=== PATIENT | female | born 1970 | race Caucasian/White ===

== ENCOUNTER 2020-03-07 05:18 | Emergency (ER) | payer MEDICAID, SELFPAY ==
[2020-03-07 05:20] VITALS: BP 152/100; PULSE 78; RESP 16; TEMP 36.4; O2SAT 99; BMI 31.8
--- NOTE | 2020-03-07 05:43 | ED.VISSUMM ---
- ER Visit Summary Date of Service: 03/07/20 Chief Complaint: Left thumb pain and decreased range of motion History of Present Illness: The patient is a 49 F history of prior strokes, uterine cancer and multiple surgeries. 7 weeks ago patient had surgery done by Dr. Familia Bah of the [facility]. She states she had previously been treated for several months at the [facility] orthopedic clinic. States Dr. Bah in a hand specialist with the [facility] 7 weeks ago did surgeon her left thumb due to what she states was a tendon injury. She states it was doing well. She was on vacation took her brace off and injured her left thumb in the shower. Coming home she stopped the emergency department in [place] who told her that her thumb was infected and treated with IV antibiotics. She states they started her on oral antibiotics but said she was allergic to them and never took them. She has an appointment to see Dr. Bah around 9:00 this morning. She denies any fever or chills. Physical Examination: Well-appearing middle-aged female no acute distress vital signs are stable afebrile. H EENT exam unremarkable. Lungs clear to auscultation bilaterally. Heart regular rhythm no murmur. Abdomen soft nontender. Extremities moves all 4. Specifically her left forearm and wrist are nontender nonswollen. She had normal radial pulse. Her left thumb is bent 90 degrees at her metacarpal phalangeal joint. She is unable to extend the thumb. There is mild swelling at the MCP joint. There is a well-healed surgical incision. She has normal cap refill. To all digits of the left hand. The other fingers are neurovascularly intact. Other than the MCP joint there is no other swelling the left thumb. She is unable to extend the thumb which is concerning for an extensor tendon rupture. Clinically at this time I do not think the thumb is infected. Test Results: None. She and I discussed x-rays which I do not think are clinically necessary and she does not want done at this time. Emergency Department Course and Treatment: There is nothing for me to really do for the patient at this time. This does not look infected. She may have ruptured her extensor tendon of her thumb. She has appointment to see her orthopedic surgeon Dr. Familia Bah in a few hours she will follow-up with him this morning. Treatment Plan: Keep her orthopedic doctor appointment today. Disposition: Discharge Impression: Acute left thumb pain and decreased range of motion rule out left thumb extensor tendon rupture Status post left thumb orthopedic surgery 7 weeks ago This note was generated with [employer] dictation software. It may contain incorrect words, spelling, and punctuation that were not noted in review of the chart prior to signing ED Disposition - Plan for ED Patient: Referrals: [facility] Doctor,Out of [Primary Care Provider] -
--- NOTE | 2020-03-07 05:48 | ED.DEP ---
ED Disposition - Plan for ED Patient: Disposition: Home or Assisted Living Referrals: Mario Bah MD [STAFF PHYSICIAN] - Keep Su appointment Additional Instructions: Follow-up with Dr. Bah with your schedule appointment today. Tylenol and Motrin for pain and swelling. Ice and elevate to decrease pain and swelling.
[2020-03-07 06:08] VITALS: RESP 16
== END 2020-03-07 06:09 | disposition home or self-care (01) ==
LOC: ED 05:51
PROVIDERS: Emergency Provider Emergency Medicine
DX: M79.645 Pain in left finger(s) (principal); Z85.42 Personal history of malignant neoplasm of other parts of uterus; Z86.73 Personal history of transient ischemic attack (TIA), and cerebral infarction without residual deficits
CPT/HCPCS: 99282